=== PATIENT | male | born 1940 | race Caucasian/White ===

== ENCOUNTER 2020-03-31 10:59 | Inpatient (IN) | payer MEDICARE, MEDICAID ==
[~2020-03-31] VITALS: Ht 180.3 cm; Wt 56.7 kg
[2020-03-31 11:00] VITALS: BP 136/90
[2020-03-31] MEDS ORDERED: ALLOPURINOL 10100 M1 PO (11:10)
[2020-03-31] MEDS ORDERED: ASA81BEC PO (11:11)
[2020-03-31] MEDS ORDERED: LIPITOR40 MG PO (11:11)
[2020-03-31] MEDS ORDERED: DRIZALMA SPRINK60 MG PO (11:11)
[2020-03-31] MEDS ORDERED: PLAVIX 75 MG TA75 MG PO (11:11)
[2020-03-31] MEDS ORDERED: AMLODIPINE BESY10 MG PO (11:11)
[2020-03-31] MEDS ORDERED: FISH OIL 1,0001 EAC9 PO (11:12)
[2020-03-31] MEDS ORDERED: MELATONIN3 M1 PO (11:12)
[2020-03-31] MEDS ORDERED: FAMOTIDINE 40 M40 M1 PO (11:12)
[2020-03-31] MEDS ORDERED: SUPER THERAVIT1 EACH PO (11:12)
[2020-03-31] MEDS ORDERED: FLOMAX0.4 MG PO (11:13)
[2020-03-31] MEDS ORDERED: RISPERIDONE 00.25 MG PO (11:13)
[2020-03-31] MEDS ORDERED: TYLENOL325 MG PO (11:14)
[2020-03-31] MEDS ORDERED: VITAMIN D3100 MCG PO (11:14)
[2020-03-31 12:42] LABS: BE -5.8 mmol/L (-2 to +3); PCO2 30.8 mmHg (35.0-45.0); PO2 62.1 mmHg (75.0-100.0)
[2020-03-31 12:47] LABS: ABSOLUTE BASOPHILS 0.1 thou/uL (0.0-0.2); ABSOLUTE EOSINOPHILS 0.2 thou/uL (0.0-0.7); ABSOLUTE LYMPHOCYTES 1.2 thou/uL (0.8-5.3); ABSOLUTE MONOCYTES 0.6 thou/uL (0.0-1.2); ABSOLUTE NEUTROPHILS 6.2 thou/uL (1.6-8.1); BASOPHILS 0.9 %; EOSINOPHILS 1.9 %; HEMATOCRIT 29.3 % (42.0-52.0); HEMOGLOBIN 9.5 gm/dL (14.0-18.0); LYMPHOCYTES 14.9 %; MCH 27.8 pg (26.0-34.0); MCHC 32.3 g/dL (28.0-37.0); MCV 86.1 fL (80.0-100.0); MONOCYTES 7.1 %; NUCLEATED RBCS 0 /100WBC; PLATELET COUNT* 302 thou/uL (150-400); POLYS 75.2 %; RDW-CV 19.3 % (10.5-14.5); WBC 8.3 thou/uL (4.0-11.0)
[2020-03-31 12:52] LABS: INR 1.2; PROTIME 12.7 Seconds (9.20-11.50)
[2020-03-31 12:55] LABS: CALCIUM 9.2 mg/dL (8.5-10.1); CREATININE 1.7 mg/dL (0.6-1.3); POTASSIUM 4.1 mmol/L (3.5-5.1)
[2020-03-31 12:59] LABS: ALBUMIN 3.7 g/dL (3.4-5.0); MAGNESIUM 2.1 mg/dL (1.8-2.4); TOTAL BILIRUBIN 0.9 mg/dL (<0.1-1.0); TOTAL PROTEIN 8.4 g/dL (6.4-8.2)
[2020-03-31 13:08] LABS: URINE BLOOD NEGATIVE (Negative); URINE CLARITY CLEAR; URINE COLOR YELLOW; URINE GLUCOSE-RANDOM NEGATIVE (Negative); URINE KETONES NEGATIVE (Negative); URINE LEUKOCYTES-REFLEX NEGATIVE (Negative); URINE NITRITE-REFLEX NEGATIVE (Negative); URINE PROTEIN 2+ (Negative); URINE SPECIFIC GRAVITY 1.025 (1.005-1.030); URINE UROBILINOGEN 0.2 E.U./dl (0.2-1.0)
[2020-03-31 13:09] LABS: ICTOTEST (BILI CONFIRMATORY) Negative (Negative); URINE BILIRUBIN 1+ (Negative)
--- NOTE | 2020-03-31 16:05 | EKG ---
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1940 Requested By: Haydee Porter Order Number: [id number] [place] MD: Stevenson Talbert Measurements Intervals [place] Rate: 91 P: -10 NM: 262 QRS: 66 QRSD: 87 T: QT: 459 QTc: 565 Interpretive Statements Sinus rhythm Ventricular premature complex Prolonged NM interval Anterior infarct, old Nonspecific T abnormalities, lateral leads Prolonged QT interval Baseline wander in lead(s) V1 No previous ECG available for comparison Electronically Signed On 03-31-2020 16:05:10 CDT by Stevenson Talbert [email or web address] <ELECTRONICALLY SIGNED> By: Stevenson Talbert MD, [facility] 03/31/20 1605 1111 1111 Stevenson Talbert MD, [facility] /EPI
--- NOTE | 2020-03-31 16:25 | NUR ---
ROBBIN NOTIFIED UPON PT RETURN FROM CT. PT CONNECTED TO MONITOR AND O2
--- NOTE | 2020-03-31 18:23 | NUR ---
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 PT FROM [facility]. PT'S IS NOW AT BEDSIDE.
[2020-03-31 18:33] VITALS: BP 107/74
[2020-03-31 20:00] VITALS: BP 138/90
[2020-04-01] VITALS: BP 136/86
[2020-04-01 04:00] VITALS: BP 108/72
[2020-04-01 05:26] LABS: HEMATOCRIT 26.7 % (42.0-52.0); HEMOGLOBIN 8.6 gm/dL (14.0-18.0); MCH 27.9 pg (26.0-34.0); MCHC 32.1 g/dL (28.0-37.0); MCV 86.7 fL (80.0-100.0); MPV 9.3 fl. (7.2-11.1); RBC 3.08 mil/uL (4.50-6.00); RDW-CV 19.4 % (10.5-14.5); WBC 3.7 thou/uL (4.0-11.0)
[2020-04-01 05:44] LABS: CREATININE 1.7 mg/dL (0.6-1.3); MAGNESIUM 1.8 mg/dL (1.8-2.4); POTASSIUM 4.4 mmol/L (3.5-5.1)
[2020-04-01 08:00] VITALS: BP 129/85
[2020-04-01 10:11] LABS: PO2 122.9 mmHg (75.0-100.0); pH 7.387 (7.340-7.450)
[2020-04-01 12:00] VITALS: BP 130/73
--- NOTE | 2020-04-01 16:12 | NUR ---
Pt lives at [facility] in memory care unit. Pt copy of DPOA on pt chart. SW following to assist with transition back to [facility] and safe dc planning when pt is ready to dc. SW to provide facility updates and speak with pt DPOA as needed in dc planning process.
[2020-04-01 17:00] VITALS: BP 97/41
[2020-04-01 17:18] LABS: BF RBC <1000 /mm3; TOTAL CELL COUNT 349 /mm3
[2020-04-01 17:19] LABS: CLARITY CLEAR; TOTAL VOLUME 2060 ml
[2020-04-01 18:05] LABS: BF LYMPHOCYTES 83 %; BF MONOCYTES 9 %; BF POLYS 8 %; BF TISSUE 4 /100 WBC; SOURCE PLEURAL FLUID
--- NOTE | 2020-04-01 19:00 | NUR ---
ASSUMED PT CARE AT 0730. ASSESSMENT COMPLETED CHARTED. UNABLE TO MAKE NEEDS KNOWN. PT SEDATED MOST OF THE DAY FROM ATIVAN AND HALDOL GIVEN IN THE NIGHT. HAD THORACENTESIS TODAY AND TOLERATED WELL. NO C/O PAIN OR DISCOMFORT. [id number] COMPLETED CHARTED. IV BECAME SALINE LOCKED DURING THORACENTESIS. WILL CONTINUE TO MONITOR.
[2020-04-01 20:00] VITALS: BP 116/72
[2020-04-02] VITALS: BP 111/79
[2020-04-02 04:00] VITALS: BP 95/61
[2020-04-02 05:35] LABS: HEMATOCRIT 28.7 % (42.0-52.0); HEMOGLOBIN 9.3 gm/dL (14.0-18.0); MCH 28.3 pg (26.0-34.0); MCHC 32.5 g/dL (28.0-37.0); MCV 87.2 fL (80.0-100.0); MPV 9.3 fl. (7.2-11.1); NUCLEATED RBCS 1 /100WBC; PLATELET COUNT* 259 thou/uL (150-400); RBC 3.29 mil/uL (4.50-6.00); RDW-CV 19.5 % (10.5-14.5); WBC 10.2 thou/uL (4.0-11.0)
[2020-04-02 06:39] LABS: CALCIUM 8.3 mg/dL (8.5-10.1); CREATININE 1.8 mg/dL (0.6-1.3); MAGNESIUM 2.1 mg/dL (1.8-2.4); POTASSIUM 4.7 mmol/L (3.5-5.1)
[2020-04-02 06:41] LABS: ABSOLUTE LYMPHOCYTES 0.3 thou/uL (0.8-5.3); ABSOLUTE MONOCYTES 0.5 thou/uL (0.0-1.2); ABSOLUTE NEUTROPHILS 9.4 thou/uL (1.6-8.1); PLATELET ESTIMATE ADEQUATE
[2020-04-02 06:42] LABS: ANISOCYTOSIS 1+; POLYCHROMASIA 2+
[2020-04-02 06:43] LABS: BURR CELLS 3+; HYPOCHROMASIA 1+; OVALOCYTES Occasional
[2020-04-02 06:44] LABS: MICROCYTES Occasional
--- NOTE | 2020-04-02 07:00 | NUR ---
CHANGE OF SHIFT, BEDSIDE REPORT GIVEN PATIENT SEEN AT BEDSIDE, IN BED ASLEEP ASSUMED PATIENT CARE
[2020-04-02 08:00] VITALS: BP 113/76
[2020-04-02 12:00] VITALS: BP 87/65
[2020-04-02 16:00] VITALS: BP 103/66
--- NOTE | 2020-04-02 16:34 | 2DMMODE ---
[place] [address] 2 D/M-MODE ECHOCARDIOGRAM Name: CAESAR SHAH Room: [facility] IN [facility]#: [id number] Admission: 03/31/20 Attend Phys: Lei Lee, Discharge: Date of : 44 Date of Service: 04/02/20 1633 Report #: [id number] THIS REPORT FOR: cc: Eduardo Zamudio MD, Todd A. MD Liston, Michael J. MD [facility] ~ APPROVED REPORT Study performed: 04/02/2020 14:24:33 EXAM: Comprehensive 2D, Doppler, and color-flow Echocardiogram Patient Location: In-Patient Room #: 229 Status: routine BSA: 1.73 HR: 92 bpm BP: 87/65 mmHg Rhythm: NSR Other Information Study Quality: Good Indications heart failure 2D Dimensions IVSd: 10.88 (7-11mm) LVOT Diam: 21.49 (18-24mm) LVDd: 45.47 mm PWd: 9.93 (7-11mm) Ascending Ao: 34.61 (22-36mm) LVDs: 44.41 (25-40mm) Aortic Root: 34.01 mm Volumes Left Atrial Volume (Systole) LA ESV Index: 44.90 mL/m2 Aortic Valve AoV Peak Sg.: 1.00 m/s AO Peak Gr.: 3.98 mmHg LVOT Max P.93 mmHg AO Mean Gr.: 2.16 mmHg LVOT Mean P.52 mmHg LVOT Max V: 0.48 m/s AO V2 VTI: 13.84 cm LVOT Mean V: 0.35 m/s VITOR (VTI): 2.09 cm2 LVOT V1 VTI: 7.95 [place] [address] 2 D/M-MODE ECHOCARDIOGRAM Name: CAESAR SHAH Room: [address] IN [facility]#: [id number] Admission: 03/31/20 Attend Phys: Lei Lee, Discharge: Date of : 44 Date of Service: 04/02/20 1633 Report #: [id number] Mitral Valve E/A Ratio: 1.92 MV Decel. Time: 122.71 ms MV E Max Sg.: 0.93 m/s MV PHT: 35.59 ms MVA (PHT): 6.18 cm2 TDI E/Lateral E': 13.29 E/Medial E': 13.29 Medial E' Sg.: 0.07 m/s Lateral E' Sg.: 0.07 m/s Tricuspid Valve RAP Estimate: 5.00 mmHg TR Peak Gr.: 36.96 mmHg RVSP: 41.00 mmHg PA Pressure: 41.00 mmHg Left Ventricle Left ventricle is mildly dilated. There is severe global hypokinesis of the left ventricle. Mild concentric left ventricular hypertrophy. Left ventricular ejection fraction is severely decreased. LVEF is 15-20%. Transmitral Doppler flow pattern suggests restrictive physiology. Right Ventricle The right ventricle is normal size. The right ventricular systolic function is normal. Atria Left atrium is moderately dilated. Right atrium is mildly dilated. Aortic Valve Mild aortic valve sclerosis. No aortic regurgitation is present. There is no aortic valvular stenosis. Mitral Valve There is mitral annular calcification. Mild mitral regurgitation. No evidence of mitral valve stenosis. Tricuspid Valve The tricuspid valve is normal in structure. Moderate tricuspid regurgitation. Moderate pulmonary hypertension. The RVSP is 50-55 [place] [address] 2 D/M-MODE ECHOCARDIOGRAM Name: CAESAR SHAH Room: [address]#: [id number] Admission: 03/31/20 Attend Phys: Lei Lee, Discharge: Date of : 44 Date of Service: 04/02/20 1633 Report #: [id number] The pulmonary valve is normal in structure. Mild pulmonic regurgitation. Great Vessels The aortic root is normal in size. IVC is dilated and collapses <50% with inspiration. Pericardium There is no pericardial effusion. <Conclusion> Left ventricle is mildly dilated. Mild concentric left ventricular hypertrophy. Left ventricular ejection fraction is severely decreased. LVEF is 15-20%. Transmitral Doppler flow pattern suggests restrictive physiology. There is severe global hypokinesis of the left ventricle. Left atrium is moderately dilated. Right atrium is mildly dilated. Mild aortic valve sclerosis. There is no aortic valvular stenosis. Mild mitral regurgitation. Moderate tricuspid regurgitation. Moderate pulmonary hypertension. The RVSP is 50-55 mmHg. Mild pulmonic regurgitation. <ELECTRONICALLY SIGNED> By: Logan Isaac MD, FACC 04/02/20 1633 1633 1633 Logan Isaac MD, FACC /INF
--- NOTE | 2020-04-02 17:19 | NUR ---
AGUSTINA faxed referral/update information to Leonila in admissions at [facility]. AGUSTINA to continue to follow to assist with safe dc planning of return to [facility] care unit. There was question of pt being ready to dc today, SW spoke with pt nurse and who also spoke with Dr Horne who determined that pt was not ready to dc today after all due to pt lung sounds/breathing and instability.
[2020-04-02 19:55] VITALS: BP 118/74
[2020-04-03] VITALS: BP 135/88
[2020-04-03 04:00] VITALS: BP 117/81
[2020-04-03 05:03] LABS: ALBUMIN 3.1 g/dL (3.4-5.0); CALCIUM 8.5 mg/dL (8.5-10.1); POTASSIUM 5.1 mmol/L (3.5-5.1); TOTAL BILIRUBIN 0.4 mg/dL (<0.1-1.0); TOTAL PROTEIN 6.7 g/dL (6.4-8.2)
--- NOTE | 2020-04-03 06:16 | NUR ---
NO ACUTE CHANGES THROUGHOUT SHIFT. ALL ROUNDINGS COMPLETED, ALL NEEDS MET, FULL ASSESSMENT COMPLETED CHARTED. CALL LIGHT AND PERSONAL ITEMS IN REACH.
[2020-04-03 08:00] VITALS: BP 120/76
--- NOTE | 2020-04-03 08:00 | NUR ---
ASSUMED CARE OF PATIENT THIS MORNING FROM NIGHT NURSE. PT IS CONFUSED WITH AND BED ALARM IS ON. PT WAS EDUCATED ON POC, FALL SAFETY AND USING THE CALL LIGHT FOR ASSISTANCE. BED ALARM IS ON. WILL CONTINUE TO MONOTOR.
--- NOTE | 2020-04-03 09:25 | NUR ---
Cardiac Rehab. Patient not appropriate for heart failure education due to mental status. No family at bedside. Will attempt Monday.
[2020-04-03 12:00] VITALS: BP 129/77
--- NOTE | 2020-04-03 16:06 | PATH ---
[address] [address] PATHOLOGY RPT PROCEDURE Name: CAESAR SHAH Room: [address] IN [facility]#: [id number] Admission: 03/31/20 Date of : 44 Discharge: Report #: [id number] Path Case #: [id number] Note [facility] Accession Number: [id number] TESTS RESULT FLAG UNITS REF RANGE LAB Clinician Provided Cytology Information No. of containers..01 Other (Miscellaneous) Source: RIGHT PLEURAL FLUID DIAGNOSIS: 02 RIGHT PLEURAL FLUID NEGATIVE FOR MALIGNANT EPITHELIAL CELLS. MESOTHELIAL CELLS ARE PRESENT. THIS INTERPRETATION INCLUDES EVALUATION OF A CELL BLOCK. PAUCICELLULAR SPECIMEN WITH MESOTHELIAL CELLS SHOWING REACTIVE AND DEGENERATIVE CHANGES ADMIXED WITH ACUTE AND CHRONIC INFLAMMATORY CELLS. Pathologist ICD10: 02 J90, J96.01, J69.0 Signed out by: Hazel Campbell MD, Pathologist NPI- [id number] Performed by: Axel Baldwin, Backup Sawyer ([facility]) Gross description: 01 80ML, CLEAR YELLOW, 1 TP 1 CB /LCS 04/02/20201958 Local FLAG LEGEND: L-Low Normal,H-High Normal,LL-Alert Low,HH-Alert High <-Panic Low,>-Panic High,A-Abnormal,AA-Critical Abnormal Performed at: [address] [place] [address] Bill Smith MD, [address] [address] Melquiades Sung MD, Specimen Comment: A courtesy copy of this report has been sent to [phone], [phone] Specimen Comment: [phone] Specimen Comment: Report sent to / DR GUNTER Performed at: [address], [place], [place] [id number] MD Bill Smith MD Phone: [phone]
--- NOTE | 2020-04-03 16:45 | NUR ---
Pt was possible to dc back to [facility] today but pending cardiology clearance and pt was not ready to dc today according to cardiology and pt nurse. If pt medically cleared and ready to dc on Monday, fax final orders/med list to [facility] fax [phone] for report is [phone] and call [facility] to arrange ride: [phone] AGUSTINA spoke with Leonila in admissions at [facility] to provide update and inform of possible dc Monday.
[2020-04-03 20:05] VITALS: BP 136/76
[2020-04-04] VITALS: BP 127/90
[2020-04-04 04:12] VITALS: BP 102/69
--- NOTE | 2020-04-04 05:33 | NUR ---
NO ACUTE CHANGES THROUGHOUT SHIFT. ALL ROUNDINGS COMPLETED, ALL NEEDS MET, FULL ASSESSMENT COMPLETED CHARTED. CALL LIGHT AND PERSONAL ITEMS IN REACH.
[2020-04-04 08:00] VITALS: BP 113/78
--- NOTE | 2020-04-04 08:00 | NUR ---
AM ASSESSEMENT COMPLETE, DEFER TO COMPUTER CHARTING. 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 ALERT ORIENTED TO SELF ONLY. DENIES PAIN, DIZZINESS NAUSEA OR ANY DISCOMFORT AT THIS TIME. 02 ON 3L PER NC, NO SIGN OF RESPIRATORY DISTRESS. NOTED DOBUTAMINE INFUSING NOT RUNNING AT THIS TIME - CALL PLACED TO CARDIOLOGY TO NOTIFY. HOB ELEVATED, BED ALARM ON FOR SAFETY. WILL MONITOR.
[2020-04-04 09:24] LABS: ALBUMIN 3.1 g/dL (3.4-5.0); CALCIUM 8.6 mg/dL (8.5-10.1); CREATININE 2.2 mg/dL (0.6-1.3); POTASSIUM 4.8 mmol/L (3.5-5.1); TOTAL BILIRUBIN 0.4 mg/dL (<0.1-1.0)
[2020-04-04 15:29] VITALS: BP 96/61
[2020-04-04 16:51] LABS: SOURCE PLEURAL
--- NOTE | 2020-04-04 17:24 | NUR ---
SCALLOPER TRACKING WITHIN NO CHANGE IN RHYTHM. REMAINS CONFUSED, ORIENTED TO SELF. IV DOBUTAMINE INFUSING PER ORDERES - BP REMAINS ON SOFT SIDE. NO COMPLAINTS OF PAIN, NAUSEA - POOR DIETARY INTAKE, HAVING DIFFICULTY WITH SWALLOWING AT TIMES. HOB ELEVATED, CALL LIGHT WITHIN REACH AND BED ALARM FOR SAFETY. WILL CONTINUE WITH PLAN OF CARE.
[2020-04-04 18:02] VITALS: BP 102/69
[2020-04-04 20:35] VITALS: BP 118/74
[2020-04-05] VITALS: BP 99/79
[2020-04-05 04:00] VITALS: BP 129/89
--- NOTE | 2020-04-05 05:39 | NUR ---
NO ACUTE CHANGES THROUGHOUT SHIFT. VSS. ALL ROUNDINGS COMPLETED, ALL NEEDS MET, FULL ASSESSMENT COMPLETED CHARTED. CALL LIGHT AND PERSONAL ITEMS IN REACH.
[2020-04-05 09:00] VITALS: BP 99/67
[2020-04-05 14:51] VITALS: BP 90/60
[2020-04-05 18:49] VITALS: BP 103/72
[2020-04-05 20:00] VITALS: BP 103/75
--- NOTE | 2020-04-05 20:20 | NUR ---
I ASSUMED CARE OF THE PATIENT AT 0700. HE IS ALERT X1 AND IS ON BEDREST. HE WAS TURNED EVERY 2 HOURS. BED IS IN THE LOW LOCKED POSITION AND CALL LIGHT IS IN REACH. BED ALARM IS ON. PAIN IS DENIED. HOURLY ROUNDING IS COMPLETED AND PATIENT NEEDS ARE MET. HE IS REPOSITIONED EVERY 2 HOURS. PLAN IS FOR PATIENT TO D/C TOMORROW TO HOME WITH HOSPICE. SEEMS UNSURE OF THAT BEING THE PLAN. BRANDI DOSS CALLED FOR AN UPDATE. WILL CONTINUE TO MONITOR. HE NEEDS TO BE FED AND NEEDS ORAL CARE. DRIP CONTINUED ALL DAY.
[2020-04-06] VITALS (7 sets, daily range): BP systolic 89–161; BP diastolic 59–83
[2020-04-06 05:27] LABS: CALCIUM 8.4 mg/dL (8.5-10.1); CREATININE 2.2 mg/dL (0.6-1.3); POTASSIUM 4.3 mmol/L (3.5-5.1)
--- NOTE | 2020-04-06 17:41 | NUR ---
AGUSTINA faxed [facility] updates upon request and will continue to follow to assist with finalizing safe dc plan. Possible for hospice consult at [facility]; AGUSTINA to discuss with facility and determine pt/family wishes. DC pending cardio. [facility] [phone]
--- NOTE | 2020-04-06 18:48 | NUR ---
ASSUMED PT CARE AT 0715 AM. REPORT RECEIVED FROM NURSE. PT IS CONFUSED. PT KEEPS SCREAMING AT BEDSIDE. ALERT AND AWAKE. VSS. DOBUTAMINE DRIP INFUSING ORDERED. IV FLUID HANGED ORDERED. FALL PRECAUTION IN PLACE. PT REFUSES HIS PILLS IN THE AM AND ALSO HAD INADEQUATE INTAKE OF FOOD.
[2020-04-07] VITALS: BP 109/63
[2020-04-07 04:00] VITALS: BP 123/68
[2020-04-07 05:17] LABS: CALCIUM 8.4 mg/dL (8.5-10.1); CREATININE 2.3 mg/dL (0.6-1.3)
[2020-04-07 08:00] VITALS: BP 120/71
[2020-04-07] MEDS ORDERED: AZITHROMYCIN 2250 MG PO (09:57)
[2020-04-07] MEDS ORDERED: MILK OF MA2400 MG/11 PO (09:57)
[2020-04-07] MEDS ORDERED: PHENERGAN 25 MG25 M1 PO (09:57)
[2020-04-07] MEDS ORDERED: IPRAT-ALBUT 0.5-3 ML INH (09:57)
[2020-04-07] MEDS ORDERED: METOPROLOL SUCC25 M1 PO (09:57)
[2020-04-07] MEDS ORDERED: MUCINEX600 MG PO (09:57)
[2020-04-07] MEDS ORDERED: BANOPHEN25 MG PO (09:57)
[2020-04-07] MEDS ORDERED: VISTARIL 25 MG25 M1 PO (09:57)
[2020-04-07] MEDS ORDERED: IMDUR 30 MG TAB30 M1 PO (09:57)
[2020-04-07] MEDS ORDERED: TRAZODONE HCL100 MG PO (09:57)
[2020-04-07] MEDS ORDERED: CEFDINIR300 MG PO (09:57)
[2020-04-07] MEDS ORDERED: ENOXAPARIN30 MG/0.1 SUBQ (09:57)
[2020-04-07 12:11] VITALS: BP 123/74
[2020-04-07 13:07] LABS: BODY FLUID LDH 69 IU/L (()); BODY FLUID PROTEIN 2.3 g/dL (())
--- NOTE | 2020-04-07 15:19 | NUR ---
Pt cleared by cardiology and hospitalist to be ready to dc home to [facility] today with recommendation for hospice consult. SW called pt Angelika and discussed pt dc today and discussed hopsice options vs therapies and pt felt hospice would be a good support and chose [facility] hospice, SW to fax referral and order to eval to [facility]. AGUSTINA spoke with Leonila at [facility] about pt dc and faxed final orders/meds; transportation scheduled for 3:30; pt nurse aware and pt aware. [facility] [phone] [facility] [phone]
--- NOTE | 2020-04-07 15:56 | NUR ---
PATIENT SLEEPING MOST OF SHIFT, PATIENT DID SPEAK TO NURSE WHEN NURSE WAS PUTTING CLOTHES ON PATIENT, PATIENT TOLD NURSE TO "STOP THAT." PATIENT REFUSED TO EAT AND TOOK ONLY 2 BITES OF CRUSHED PILLS. DR. DUNHAM AWARE. PATIENT DID NOT SPEAK WITH DOCTORS THIS AM. SINCERE OLVERA DC'Dillon THIS AM PER CARDIOLOGY ORDERS. ORDERS FOR HOSPICE AT [facility]. REPORT CALLED TO DASIA. PATIENT TAKEN VIA WHEELCHAIR VAN, AT BEDSIDE.
--- NOTE | 2020-04-08 16:51 | NUR ---
PT. DISCHARGED TO [facility] FOR HOSPICE CARE PRIOR TO O.T. EVAL. PLEASE ORDER FURTHER O.T. SERVICES IF NEEDED.
== END 2020-04-07 16:01 | disposition hospice, inpatient (51) | DRG 177 ==
LOC: M.ERS 10:59 → M.2W 14:53 → M.TBA-ER 14:53 → M.2W 19:05
PROVIDERS: Internal Medicine Cardiovascular Disease; Personal Emergency Response Attendant; Registered Nurse; ADMIT Internal Medicine; ATTEND Internal Medicine
PROC: 0W993ZZ Drainage of Right Pleural Cavity, Percutaneous Approach (ICD-10-PCS; principal; 2020-04-01)
DX: J69.0 Pneumonitis due to inhalation of food and vomit (principal); J96.01 Acute respiratory failure with hypoxia; G93.41 Metabolic encephalopathy; I50.43 Acute on chronic combined systolic (congestive) and diastolic (congestive) heart failure; I13.0 Hypertensive heart and chronic kidney disease with heart failure and stage 1 through stage 4 chronic kidney disease, or unspecified chronic kidney disease; I69.354 Hemiplegia and hemiparesis following cerebral infarction affecting left non-dominant side; J91.8 Pleural effusion in other conditions classified elsewhere; N17.9 Acute kidney failure, unspecified; I42.8 Other cardiomyopathies; K74.60 Unspecified cirrhosis of liver; N40.0 Benign prostatic hyperplasia without lower urinary tract symptoms; E78.5 Hyperlipidemia, unspecified; K75.9 Inflammatory liver disease, unspecified; N18.3 Chronic kidney disease, stage 3 (moderate); F32.9 Major depressive disorder, single episode, unspecified; G47.00 Insomnia, unspecified; K80.20 Calculus of gallbladder without cholecystitis without obstruction; F03.90 Unspecified dementia, unspecified severity, without behavioral disturbance, psychotic disturbance, mood disturbance, and anxiety; Z20.828 Contact with and (suspected) exposure to other viral communicable diseases; Z79.82 Long term (current) use of aspirin; Z79.899 Other long term (current) drug therapy